=== PATIENT | male | born 1960 | race Caucasian/White ===

== ENCOUNTER → 2025-04-30 07:58 | Outpatient (REF) | payer MEDICARE, SELFPAY | LOC: RAD 07:58 | PROVIDERS: ATTENDING PHYSICIAN Family Medicine | DX: I10 Essential (primary) hypertension (principal); E78.00 Pure hypercholesterolemia, unspecified; R00.0 Tachycardia, unspecified | CPT/HCPCS: 75571; 93225; 93226 ==

== ENCOUNTER → 2025-06-14 18:06 | Outpatient (REF) | payer MEDICARE, SELFPAY | LOC: PAVMRI 18:06 | PROVIDERS: ATTENDING PHYSICIAN Specialist; FAMILY PHYSICIAN Family Medicine | DX: M54.50 Low back pain, unspecified (principal) | CPT/HCPCS: 72148 ==